=== PATIENT | female | born 1940 | race Caucasian/White ===

== ENCOUNTER 2017-05-05 12:54 | Outpatient (CLI) | payer MEDICARE ==
--- NOTE | 2017-05-05 15:23 | CT ---
CT ANGIO NECK: Date: 05/05/17 Multiple axial tomograms obtained through neck with IV enhancement and arterial phase with multiplana r reconstructions and 3D postprocessing. HISTORY: Abnormal gait. FINDINGS: There is diffuse atherosclerotic disease involving the aortic arch. There is common origin of the inn ominate and left common carotid. No significant stenosis seen at the origin of the arch vessels. Both common carotids are patent with mild diffuse atherosclerotic disease bilaterally. No significant common carotid artery stenosis. On the right, there is calcified plaque at the right bulb and proximal ICA. No significant right ICA stenosis. On the left, there is moderate soft and calcified plaque at the bifurcation in the proximal left ICA. This results in mild stenosis of the proximal left ICA; however, the degree of stenosis is not hemod ynamically significant (greater than 50%) by NASCET criteria. The left ICA is very tortuous and there is a kink in the proximal left ICA above the origin. No other significant disease or stenosis. Vertebrals are patent and are symmetric. No soft tissue mass or adenopathy. There are degenerative changes in the cervical spine, most promine nt at the C6-7 level with loss of disc space and posterior spondylitic changes which appear to encroa ch into the spinal canal and impinge on the cord. IMPRESSION: There is moderate atherosclerotic change at both bulbs and proximal ICAs. Mild stenosis in the proxim al left ICA which does not appear to be hemodynamically significant by NASCET criteria. CT ANGIO HEAD WITH AND WITHOUT CONTRAST: Multiple tomograms obtained through the head without contrast. This was followed by multiple tomogram s through the head with arterial phase enhancement with multiplanar reconstruction and 3D postprocess ing. HISTORY: Abnormal gait. FINDINGS: CT head without contrast reveals no evidence of acute intracranial mass, hemorrhage, or infarct. Ther e are mild chronic ischemic changes. Possible old tiny lacunar infarct in the head of the caudate on the left The intracranial internal carotid arteries are patent. Mild atherosclerotic change seen in the cavern ous portions bilaterally; however, no evidence of significant stenosis. Anterior cerebral arteries and middle cerebral arteries appear patent. No focal stenosis or occlusion seen. Peripheral branches are symmetric. Basilar artery is patent. Posterior cerebrals are patent and symmetric. IMPRESSION: Unremarkable CT angio of cerebral circulation. POS: [facility]
== END 2017-05-05 12:55 | disposition home or self-care (01) ==
LOC: CT 12:54
PROVIDERS: ATTEND Psychiatry & Neurology Neurology
DX: R26.9 Unspecified abnormalities of gait and mobility (principal); I65.22 Occlusion and stenosis of left carotid artery
CPT/HCPCS: 36415; 70496; 70498; 82390; 82525; 82607; 82746; 84165; 84446; 85652; 86038; 86140; 86334

== ENCOUNTER 2017-05-09 09:38 | Outpatient (CLI) | payer MEDICARE ==
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
== END 2017-05-09 09:39 | disposition home or self-care (01) ==
LOC: TBSIIMAG 09:38
PROVIDERS: ATTEND Psychiatry & Neurology Neurology
DX: R26.9 Unspecified abnormalities of gait and mobility (principal); G93.9 Disorder of brain, unspecified
CPT/HCPCS: 70551

== ENCOUNTER 2017-08-18 15:19 | Emergency (ER) | payer MEDICARE ==
[2017-08-18] MEDS ORDERED: Acetaminophen 500 MG TAB ONE (16:48)
== END 2017-08-18 18:00 | disposition home or self-care (01) ==
LOC: ERS 15:19
DX: J02.9 Acute pharyngitis, unspecified (principal); I25.10 Atherosclerotic heart disease of native coronary artery without angina pectoris; I48.91 Unspecified atrial fibrillation; I10 Essential (primary) hypertension; J44.9 Chronic obstructive pulmonary disease, unspecified; F17.210 Nicotine dependence, cigarettes, uncomplicated
CPT/HCPCS: 87081; 87430; 99283

== ENCOUNTER 2017-11-23 17:59 | Emergency (ER) | payer MEDICARE ==
[2017-11-23] MEDS ORDERED: HYDROcodone/Acetaminophen 5/325 mg Tablet ONE ×2 (18:33→19:40)
--- NOTE | 2017-11-23 18:49 | RAD ---
RADIOGRAPH RIGHT SHOULDER 3 VIEWS 11/23/17 HISTORY: 77-year-old female with right shoulder pain. FINDINGS: There is no fracture or dislocation. No high grade DJD of AC joint or glenohumeral joint. Diffuse ost eopenia. No bone destruction identified. Old, healed fracture deformities of the lateral aspects of t hird, fourth, and fifth ribs. IMPRESSION: 1. Osteopenia. 2. Otherwise unremarkable appearance of right shoulder. 3. Old, healed right rib fracture deformities. POS: [facility]
--- NOTE | 2017-11-23 20:30 | CT ---
CT THORAX NONCONTRAST: 11/23/17 HISTORY: 77-year-old female with acute chest pain. COMPARISON: 08/06/16. FINDINGS: On the 08/06/16 CT, there were multiple acute fractures of the right ribs. Those have now healed and ar e now old. The previously demonstrated tiny right pneumothorax has resolved. Previously noted noncalc ified pulmonary nodule in anterior segment of right upper lobe abutting the anterolateral pleural nicolas face is no longer present. There is a tiny 3 mm noncalcified pulmonary nodule at the apical segment o f the left upper lobe, unchanged and benign. Sternotomy wires are again noted. Heavy atherosclerotic calcification of ectatic, and tortuous thoracic aorta again noted. 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 No o bstruction or trachea or major bronchi. Currently no pleural effusion or pneumothorax. 3 cm cyst in l eft kidney again noted. Atherosclerotic calcification of LAD, LCX, left main, and RCA. No cardiomegal y or pericardial effusion. No pulmonary edema. No pulmonary consolidation. IMPRESSION: 1. No acute findings. 2. Multiple, old, traumatic right rib fracture deformities, healed. 3. Atherosclerotic disease involving coronary arteries and thoracic aorta. 4. Small focal aneurysm of aortic arch, unchanged. PARUL [place] POS: [facility]
[2017-11-23 21:01] LABS: #Eosinphils 0.6 thou/uL (0.0-0.7); #Lymphocytes 1.8 thou/uL (1.20-3.40); #Monocytes 0.4 thou/uL (0.11-0.59); #Neutrophils 6.3 thou/uL (1.40-6.50); %Basophils 0.4 % (0.0-1.0); %Eosinophils 6.2 % (0.0-10.0); %Lymphocytes 19.4 % (21.0-51.0); %Monocytes 4.5 % (0.0-10.0); %Neutrophils 69.4 % (42.0-75.0); Hemoglobin 12.1 g/dL (12.0-16.0); Mean Corpuscular Hemoglobin 28.1 pg (27.0-31.0); Mean Corpuscular Volume 85.2 fL (78.0-98.0); Mean Platelet Volume 8.3 fL (7.4-10.4); Platelet Count 226 thou/uL (130-400); RBC Distribution Width 14.3 % (11.5-14.5); Red Blood Cell (RBC) Count 4.31 mill/uL (4.20-5.40)
[2017-11-23 21:15] LABS: Anion Gap 14 mmol/L (10-20); BUN (Urea Nitrogen) 18 mg/dL (9.8-20.1); Calc. Creatinine Clearance 0 mL/min (70-130); Calcium 8.7 mg/dL (7.8-10.44); Carbon Dioxide 23 mmol/L (23-31); Chloride 104 mmol/L (98-107); Estimated GFR-MDRD 48; Glucose 184 mg/dL (83-110); Potassium 4.1 mmol/L (3.5-5.1); Sodium 137 mmol/L (136-145)
== END 2017-11-23 21:35 | disposition home or self-care (01) ==
LOC: ERS 17:59
DX: L04.2 Acute lymphadenitis of upper limb (principal); I48.91 Unspecified atrial fibrillation; I10 Essential (primary) hypertension; J44.9 Chronic obstructive pulmonary disease, unspecified; F17.210 Nicotine dependence, cigarettes, uncomplicated; Z79.899 Other long term (current) drug therapy
CPT/HCPCS: 36415; 71250; 80048; 85025

== ENCOUNTER 2018-02-14 06:40 | Inpatient (IN) | payer MEDICARE ==
[2018-02-14] MEDS ORDERED: Fentanyl 100 MCG/2 ML VIAL ONE (07:33)
[2018-02-14] MEDS ORDERED: Ondansetron ODT 4 MG TAB PO PRN (10:53)
[2018-02-14] MEDS ORDERED: CEFAZOLIN/Water 2 GM/20 ML SYRINGE SLOW IVP SCH (12:00)
--- NOTE | 2018-02-14 12:01 | CT ---
NONCONTRAST HEAD CT: History: Patient is on Eliquis. Fall. Post-traumatic pain. Comparison: 08-06-16 Technique: Noncontrast head CT was performed from skull base to skull vertex. FINDINGS: Slightly limited evaluation due to motion degradation. No parenchymal hemorrhage. No extraaxial hemat josiah. No midline shift. Basilar cisterns are patent. Brain volume is age appropriate. There is malacic change involving the right occipital lobe and left frontal lobe. Otherwise, cortical garcia white faisal er differentiation is preserved. No evidence of hydrocephalus. Calvarium is intact. Adequate aeration of mastoid air cells. Mild mucosal disease of the right ethmoi d air cells. IMPRESSION: 1. No intracranial post-traumatic sequellae. Results of the study discussed with Dr. Nielsen 02-14-18 a t the time of the examination. POS: [facility]
[2018-02-14 12:09] LABS: ALT (SGPT) 11 U/L (8-55); AST (SGOT) 16 U/L (5-34); Albumin 3.9 g/dL (3.4-4.8); Alkaline Phosphatase 117 U/L (40-150); Anion Gap 13 mmol/L (10-20); BUN (Urea Nitrogen) 19 mg/dL (9.8-20.1); Bilirubin, Total 0.3 mg/dL (0.2-1.2); Calc. Creatinine Clearance 0 mL/min (70-130); Calcium 8.8 mg/dL (7.8-10.44); Carbon Dioxide 24 mmol/L (23-31); Chloride 105 mmol/L (98-107); Estimated GFR-MDRD 49; Globulin 2.5 g/dL (2.4-3.5); Glucose 131 mg/dL (83-110); Potassium 4.3 mmol/L (3.5-5.1); Protein, Total 6.4 g/dL (6.0-8.3); Sodium 138 mmol/L (136-145)
[2018-02-14 12:46] LABS: INR-International Normal Ratio 2.3; Prothrombin Time 25.4 SEC (12.0-14.7)
[2018-02-14 12:48] LABS: #Eosinphils 0.2 thou/uL (0.0-0.7); #Lymphocytes 1.6 thou/uL (1.20-3.40); #Monocytes 0.6 thou/uL (0.11-0.59); #Neutrophils 8.7 thou/uL (1.40-6.50); %Basophils 0.4 % (0.0-1.0); %Eosinophils 1.8 % (0.0-10.0); %Lymphocytes 14.1 % (21.0-51.0); %Monocytes 5.4 % (0.0-10.0); %Neutrophils 78.3 % (42.0-75.0); Hemoglobin 11.7 g/dL (12.0-16.0); Mean Corpuscular HGB CONC 32.1 g/dL (32.0-36.0); Mean Corpuscular Hemoglobin 27.9 pg (27.0-31.0); Mean Platelet Volume 9.1 fL (7.4-10.4); Platelet Count 231 thou/uL (130-400); RBC Distribution Width 13.8 % (11.5-14.5); Red Blood Cell (RBC) Count 4.17 mill/uL (4.20-5.40); White Blood Cell (WBC) Count 11.1 thou/uL (4.8-10.8)
--- NOTE | 2018-02-14 12:57 | RAD ---
PORTABLE CHEST: Date: 02-14-18 Provided Clinical History: Pre op. FINDINGS: Comparison with 08-09-16. Cardiac and mediastinal silhouette is unchanged in appearance. Cardiomegaly and vascular calcificatio n are again seen. No focal consolidation, pleural fluid, or pneumothorax apparent. Displaced left pro ximal humeral fracture is noted. IMPRESSION: No evidence for an acute cardiopulmonary process. POS: [facility]
--- NOTE | 2018-02-14 12:57 | RAD ---
TWO VIEWS LEFT SHOULDER: DATE: 02/14/18. PROVIDED CLINICAL HISTORY: Left arm pain. FINDINGS: There is a transversely oriented fracture of the left proximal humeral diaphyseal region with associa ayaka medial and anterior displacement of the distal fracture fragment with fracture fragment overridin g in apex anterior angulation. The glenohumeral relationship is not well assessed on this exam. IMPRESSION: Displaced and angulated left proximal humeral diaphyseal fracture. POS: [facility]
--- NOTE | 2018-02-14 13:03 | CON ---
DATE OF CONSULTATION: 02/14/2018 HISTORY OF PRESENT ILLNESS: We were asked to see the patient for left humerus fracture. She is here with family. Family states she has been having some mentation issues lately, little more confused, hallucinating, and they are concerned with her health. Patient is not a very good historian and family fills in what they are able to. They are waiting for caregiver to arrive to give us further information. The patient fell, she recalls hitting her head, she does not think she had any loss of consciousness. She is answering questions fairly well if they are simple. PAST MEDICAL HISTORY: That I was able to get from patient, some cardiac issues , hypertension, cholesterol, and she is on blood thinners. PAST SURGICAL HISTORY: Some stents, bypass surgery, knee replacement, appendectomy, and hysterectomy. SOCIAL HISTORY: Family states she does not smoke daily, but still has a cigarette now and then. No alcohol products. CURRENT MEDICATIONS: Not verified as of yet are aspirin, carvedilol, docusate sodium, lisinopril, pravastatin, tramadol, and Xarelto, and family is unsure if this is a complete list. ALLERGIES: mayonnaise. REVIEW OF SYSTEMS: Denies any shortness of breath. She does have a little bit of a headache. No chest pain. She has left upper extremity pain, obvious deformity. She has been placed in a sling. Otherwise, she denies rest of review of systems. PHYSICAL EXAMINATION: GENERAL: A lkcn-[id number]-xyxhtdjft female, resting in bed, in mild distress, especially when we moved the left upper extremity. Speech is clear. Answers questions fairly well. She is oriented to person and place. HEENT: Face symmetric, tongue midline. NECK: Supple, trachea midline. EXTREMITIES: Upper extremities, they are equal size, shape, symmetry, normal bulk and tone with the exception of the left humerus proximal area, it is a little bit deformed and tender to palpation. Otherwise, arms have equal pulses and movement to the digits and hands. Lower extremity exam, no positive findings, just some bruises on her shins. ASSESSMENT: 1. Multiple health issues. Trauma is admitting. 2. Left humerus fracture. PLAN: I spoke with the patient and family, we need to get her true medication list. Family is working on this. We would like to do a humeral nailing tomorrow. I explained to the patient and family the procedure. They understand. I also went over the risks and benefits of doing surgery versus not doing the surgery and they understand and they are amenable to go forth with surgery. We will get surgery planned for tomorrow, which we needed to get medical clearance for her. We will keep her in the sling. I will make her n.p.o. after midnight and treat her pain while she is here. She will need PT, OT, or possibly placement skilled rehab. We will see how she does postoperatively. Mor Lugo PA-C., dictating for Sergio Rivera M.D. [facility]
[2018-02-14 14:14] VITALS: BMI 29.9
--- NOTE | 2018-02-14 14:36 | HP-2 ---
DATE OF ADMISSION: 02/14/2018 REQUESTING PHYSICIAN: Dr. Nielsen. ATTENDING SURGEON: Jose Morataya D.O. CONSULTS: Orthopedic Surgery, Dr. Rivera. HISTORY OF PRESENT ILLNESS: This is a 77-year-old female who reports waking up last night to use the restroom. She states normally she turns light on, but did not this time. She rounded corner in her house and fell on her left side. She developed immediate pain in her left arm, had decreased range of motion. Patient reports no loss of consciousness or no trauma to her head. The patient denies no syncopal events surrounding this fall. ALLERGIES: None. CURRENT MEDICATIONS: Per patient, Xarelto, Synthroid, Atarax, and other blood pressure medication fo r her heart. Patient states that family is bringing medication list later today. PAST MEDICAL HISTORY: Coronary artery disease, status post quadruple bypass 3-4 years ago, hypothyro idism, atrial fibrillation. PAST SURGICAL HISTORY: Bypass mentioned above, 6 prior sections. SOCIAL HISTORY: The patient states that she smokes half a pack a day for about 50 years and continue s to smoke. FAMILY HISTORY: Diabetes type 2 in her other siblings. REVIEW OF SYSTEMS: Ten point review of systems is negative, unless otherwise stated. PHYSICAL EXAMINATION: VITAL SIGNS: . GENERAL: Patient is resting comfortably in bed with eyes closed. Upon entering the room, the patien t awake, alert, and oriented x3 and discuss appropriate with us. HEENT: Atraumatic, normocephalic. EOMI, PERRLA bilaterally. Oropharynx is clear. NECK: Nontender, no JVD. CHEST: Heart is irregularly irregular. Patient has 2/6 systolic murmur, best heard at the left ster nal border. LUNGS: Clear to auscultation bilaterally. ABDOMEN: Soft, nontender with positive bowel sounds. EXTREMITIES: Neurovascularly intact x4. Left upper extremity is currently in a sling. LABORATORY RESULTS: White blood cell count 11.1, hemoglobin 11.7, hematocrit 36.3, platelets 231. P T is 25.4, INR 2.30. RADIOGRAPHS: Proximal left shoulder x-ray, proximal fourth of left humerus is laterally displaced. There are signs of sternal wire and suggestive of heart surgery in the past. ASSESSMENT: 1. Status post ground level fall. 2. Left humeral shaft fracture, displaced. 3. Pain secondary to acute trauma. 4. History of atrial fibrillation. 5. History of hypothyroidism. 6. History of hypertension. PLAN: Patient will be admitted to surgical floor. Patient will be on regular diet today and n.p.o. after midnight. We will control pain management as well as gastric and mechanical venous thromboembo lic prophylaxis. Miguel has been notified of this case. Dr. Morataya saw this patient. We discussed their treatment and plan.
[2018-02-14] MEDS: Acetaminophen 325 MG TAB PO SCH ×4 (15:24→23:46)
[2018-02-14] MEDS: Famotidine 20 MG TAB PO SCH (19:56)
[2018-02-14] MEDS ORDERED: Phytonadione 10 MG/ML AMP SLOW IVP SCH (20:45)
[2018-02-14] MEDS: Sodium Chloride 0.45% 1,000 ML IV SCH (23:49)
[2018-02-15] MEDS: Acetaminophen 325 MG TAB PO SCH ×6 (02:49→22:06)
[2018-02-15 04:37] LABS: #Basophils 0.1 thou/uL (0.0-0.2); #Eosinphils 0.5 thou/uL (0.0-0.7); #Lymphocytes 3.1 thou/uL (1.20-3.40); #Monocytes 0.5 thou/uL (0.11-0.59); #Neutrophils 2.6 thou/uL (1.40-6.50); %Basophils 0.8 % (0.0-1.0); %Eosinophils 7.4 % (0.0-10.0); %Monocytes 7.6 % (0.0-10.0); %Neutrophils 38.2 % (42.0-75.0); Hemoglobin 11.3 g/dL (12.0-16.0); Mean Corpuscular HGB CONC 32.9 g/dL (32.0-36.0); Mean Corpuscular Hemoglobin 28.8 pg (27.0-31.0); Mean Corpuscular Volume 87.6 fL (78.0-98.0); Mean Platelet Volume 9.5 fL (7.4-10.4); Platelet Count 199 thou/uL (130-400); RBC Distribution Width 13.9 % (11.5-14.5); Red Blood Cell (RBC) Count 3.93 mill/uL (4.20-5.40); White Blood Cell (WBC) Count 6.8 thou/uL (4.8-10.8)
[2018-02-15 04:44] LABS: INR-International Normal Ratio 1.4; Prothrombin Time 16.9 SEC (12.0-14.7)
[2018-02-15 05:00] LABS: ALT (SGPT) 8 U/L (8-55); AST (SGOT) 12 U/L (5-34); Albumin 3.4 g/dL (3.4-4.8); Alkaline Phosphatase 96 U/L (40-150); Anion Gap 13 mmol/L (10-20); BUN (Urea Nitrogen) 15 mg/dL (9.8-20.1); Bilirubin, Total 0.5 mg/dL (0.2-1.2); Calc. Creatinine Clearance 57 mL/min (70-130); Calcium 8.4 mg/dL (7.8-10.44); Carbon Dioxide 22 mmol/L (23-31); Chloride 106 mmol/L (98-107); Estimated GFR-MDRD 61; Globulin 2.4 g/dL (2.4-3.5); Glucose 107 mg/dL (83-110); Protein, Total 5.8 g/dL (6.0-8.3); Sodium 137 mmol/L (136-145)
[2018-02-15] MEDS: Famotidine 20 MG TAB PO SCH ×2 (07:42→21:15)
--- NOTE | 2018-02-15 12:24 | PRG ---
DATE OF SERVICE: 02/15/2018 SUBJECTIVE: Ms. Delgado is a 77-year-old woman who fell from a ground level position yesterday suffer ing comminuted displaced left proximal humerus fracture. The patient has been on Xarelto for chronic atrial fibrillation. It also was held yesterday. INR wa s elevated yesterday at 2.3 for which patient was given vitamin K 5 mg. This morning, she reports adequate pain control. She has been on bowel rest since midnight in anticipation for surgery. OBJECTIVE: VITAL SIGNS: This morning includes blood pressure 131/44, pulse is 81 and irregular, respiratory rat e is 18, temperature 97.7 degrees Fahrenheit and oxygen saturation 98%. HEENT: Examination reveals normocephalic and atraumatic. Pupils are equal, round, and reactive to l ight and accommodation. HEART: Reveals irregular rate and irregular rhythm. LUNGS: Clear to auscultation bilaterally. Breathing is regular and unlabored. ABDOMEN: Soft, nontender, nondistended. Liver and spleen are nonpalpable below costal margin. EXTREMITIES: Reveals 2+ radial and pedal pulses bilaterally. She has no ankle edema present. The l eft upper extremity is immobilized in a sling. NEUROLOGIC: Examination reveals no focal deficits present. LABORATORY DATA: Today includes CBC with 6,800 white blood cells, hemoglobin and hematocrit 11.3 and 34.4 respectively, platelet count is 199,000. Metabolic profile: Sodium 137, potassium is 4.0, chl oride is 106, bicarbonate is 22, BUN 15, creatinine 0.90, glucose was 107, total bilirubin 0.5, AST a nd ALT normal at 12 and 8 respectively. IMPRESSION: 1. Post-injury day #1, status post ground level fall. 2. Closed complete displaced proximal left humerus fracture. 3. Chronic atrial fibrillation, currently with bradyarrhythmia. The patient is without any symptoms . INR this morning is normalized at 1.4. 4. Post-injury day #1, status post ground level fall. 5. Proximal left humerus fracture. 6. History of chronic atrial fibrillation. PLAN: The patient is hemodynamically stable to proceed with repair of the left humerus fracture. We will obtain a transthoracic echocardiography perioperatively.
[2018-02-15] MEDS ORDERED: CEFAZOLIN/Water 2 GM/20 ML SYRINGE ONE (13:12)
[2018-02-15] MEDS ORDERED: Morphine 4 MG/ML VIAL ONE (13:28)
[2018-02-15] MEDS ORDERED: Fentanyl 100 MCG/2 ML VIAL ONE ×3 (13:31→15:37)
[2018-02-15] MEDS ORDERED: Bupivacaine HCl 0.5%/Epinephrine 1:200,000/PF 30 ml Vial ONE (14:04)
--- NOTE | 2018-02-15 15:14 | RAD ---
LEFT HUMERUS TWO VIEWS INTRAOPERATIVE FLUOROSCOPY: History: Fracture. FINDINGS/IMPRESSION: Intraoperative fluoroscopy was provided for internal fixation. Spot fluoroscopic images show a short medullary alejandro transfixing the proximal humeral fracture, in anatomic alignment. Fluoro time: 32.4 seconds. POS: [facility]
--- NOTE | 2018-02-15 18:30 | OP ---
DATE OF PROCEDURE: 02/15/2018 OPERATION: Intramedullary nail fixation of left proximal humerus fracture. PREOPERATIVE DIAGNOSIS: Left displaced proximal humerus fracture. POSTOPERATIVE DIAGNOSIS: Left displaced proximal humerus fracture. COMPLICATIONS: None. ESTIMATED BLOOD LOSS: 150 mL SURGEON: Sergio Rivera M.D. SIZER HAND: Mert Dempsey PA-C. IMPLANTS: Synthes 7 mm short humeral nail with screw fixation. INDICATIONS: Ms. Delgado is a 77-year-old female who fell. She fractured her left humerus. She was indicated for intramedullary nail fixation to restore anatomic alignment and promote healing. Risks have been reviewed in detail. She elected to proceed with the operation. DESCRIPTION OF PROCEDURE: Ms. Delgado was identified in the preoperative holding area. Her correct e xtremity was marked. She was carried to the operating room. She was positioned supine. General ane sthesia was induced. A multidisciplinary timeout was performed. The left upper extremity was preppe d and draped in sterile fashion. We began the procedure with a lateral approach over the deltoid. We dissected down to the subcutaneo us tissues. The deltoid fascia was split. This brought us down onto the proximal humerus. We clear ed the subacromial space. We then made a small split in the rotator cuff and came down on the tubero sity. We obtained an appropriate start point for our guidewire. At this point, we inserted our guid ewire appropriately using intraoperative x-ray. We then overdrilled the guidewire. Finally, at this point, we were able to pass our intramedullary nail device. We passed this across the fracture site into the shaft. We reduced the fracture well and obtained compression. We then placed a distal crop or livestock tenant farmer ss lock screw followed by proximal cross lock screws. We took final images. We then irrigated and c losed in layers. A dressing was placed. The patient was taken to the recovery room in good conditio n.
[2018-02-15] MEDS ORDERED: traMADol HCl 50 MG TAB PO PRN (20:23)
[2018-02-15] MEDS: Ibuprofen 200 MG TAB PO SCH (21:15)
[2018-02-15] MEDS: CEFAZOLIN/Water 2 GM/20 ML SYRINGE SLOW IVP SCH (21:16)
[2018-02-15] MEDS: Senokot S 8.6-50 MG TAB PO SCH (21:16)
[2018-02-15] MEDS: Sodium Chloride 0.45% 1,000 ML IV SCH (22:27)
[2018-02-16] MEDS: traMADol HCl 50 MG TAB PO SCH ×5 (00:49→23:12)
[2018-02-16] MEDS: Acetaminophen 325 MG TAB PO SCH ×6 (00:50→20:35)
[2018-02-16] MEDS: CEFAZOLIN/Water 2 GM/20 ML SYRINGE SLOW IVP SCH (05:27)
[2018-02-16] MEDS: Ibuprofen 200 MG TAB PO SCH ×3 (05:28→23:12)
[2018-02-16 05:42] LABS: #Eosinphils 0.5 thou/uL (0.0-0.7); #Lymphocytes 2.3 thou/uL (1.20-3.40); #Monocytes 0.6 thou/uL (0.11-0.59); #Neutrophils 3.5 thou/uL (1.40-6.50); %Basophils 0.3 % (0.0-1.0); %Eosinophils 6.9 % (0.0-10.0); %Lymphocytes 33.7 % (21.0-51.0); %Monocytes 8.7 % (0.0-10.0); %Neutrophils 50.4 % (42.0-75.0); Hemoglobin 10.6 g/dL (12.0-16.0); Mean Corpuscular HGB CONC 31.7 g/dL (32.0-36.0); Mean Corpuscular Hemoglobin 28.4 pg (27.0-31.0); Mean Corpuscular Volume 89.7 fL (78.0-98.0); Mean Platelet Volume 9.8 fL (7.4-10.4); Platelet Count 184 thou/uL (130-400); RBC Distribution Width 13.8 % (11.5-14.5); Red Blood Cell (RBC) Count 3.74 mill/uL (4.20-5.40); White Blood Cell (WBC) Count 6.9 thou/uL (4.8-10.8)
[2018-02-16 06:22] LABS: ALT (SGPT) Less than 7 U/L (8-55); AST (SGOT) 15 U/L (5-34); Alkaline Phosphatase 92 U/L (40-150); Anion Gap 13 mmol/L (10-20); BUN (Urea Nitrogen) 13 mg/dL (9.8-20.1); Bilirubin, Total 0.3 mg/dL (0.2-1.2); Calc. Creatinine Clearance 54 mL/min (70-130); Calcium 8.2 mg/dL (7.8-10.44); Carbon Dioxide 20 mmol/L (23-31); Chloride 106 mmol/L (98-107); Estimated GFR-MDRD 58; Globulin 2.4 g/dL (2.4-3.5); Glucose 95 mg/dL (83-110); Potassium 4.1 mmol/L (3.5-5.1); Protein, Total 5.4 g/dL (6.0-8.3); Sodium 135 mmol/L (136-145)
[2018-02-16] MEDS ORDERED: Enoxaparin Sodium 40 MG/0.4 ML SYRINGE SC SCH (09:00)
[2018-02-16] MEDS: Famotidine 20 MG TAB PO SCH ×2 (10:01→20:36)
[2018-02-16] MEDS: Senokot S 8.6-50 MG TAB PO SCH ×2 (10:01→20:41)
[2018-02-16] MEDS: Polyethylene Glycol 3350 17 GM Packet PO SCH (10:01)
--- NOTE | 2018-02-16 13:52 | PRG-2 ---
DATE OF SERVICE: 02/15/2018 SUBJECTIVE: This is a 77-year-old female hospital day #2, postop day #1, ORIF of left humeral shaft fracture. The patient stated that her pain is well controlled. She is having no trouble breathing, no chest pain. Her only complaint this morning was that she was positioned strangely. The patient w as slumped over trying to eat. We repositioned her and she stated that was improvement. OBJECTIVE: VITAL SIGNS: Temperature 98.7, pulse 61, respirations 16, O2 sat 94% on 2 liters nasal cannula, bloo d pressure 147/65. GENERAL: The patient is sitting in bed in no acute distress, eating breakfast. CARDIOVASCULAR: Reveals irregular rate, irregular rhythm. LUNGS: Clear to auscultation bilaterally. Patient is not labored in breathing. EXTREMITIES: 2+ pulses in all 4 extremities. Good sensation in all 4 extremities. LABORATORY DATA: White blood cells 6.9, hemoglobin 10.6, hematocrit 33.5, MCV 89.7, platelet count 1 84. Sodium 135, potassium 4.1, chloride 100.6, bicarb 20, BUN 13, creatinine 0.94, glucose 95. IMAGING: None to review today. ASSESSMENT: 1. Left humeral shaft fracture postoperative day 1, status post open reduction and internal fixation . 2. Chronic atrial fibrillation with resolved bradycardia. 3. History of atrial fibrillation. PLAN: We will continue to control the patient's pain as well as restart her Xarelto. We will wait t o see how the patient does with physical therapy and occupational therapy. The patient reports that her rjttbaze-go-asv could come stay with her and help her with ADLs if necessary. The patient states she would like home health over inpatient rehab or other options. Dr. Morataya saw this patient. We discussed the treatment plan.
[2018-02-17] MEDS: Acetaminophen 325 MG TAB PO SCH ×5 (03:57→17:07)
[2018-02-17] MEDS: Ibuprofen 200 MG TAB PO SCH ×2 (05:14→14:27)
[2018-02-17] MEDS: traMADol HCl 50 MG TAB PO SCH ×4 (05:15→17:08)
[2018-02-17 05:50] LABS: #Basophils 0.1 thou/uL (0.0-0.2); #Eosinphils 0.7 thou/uL (0.0-0.7); #Monocytes 0.5 thou/uL (0.11-0.59); #Neutrophils 3.4 thou/uL (1.40-6.50); %Basophils 0.8 % (0.0-1.0); %Lymphocytes 30.2 % (21.0-51.0); %Monocytes 7.9 % (0.0-10.0); %Neutrophils 51.1 % (42.0-75.0); Hemoglobin 10.6 g/dL (12.0-16.0); Mean Corpuscular HGB CONC 32.6 g/dL (32.0-36.0); Mean Corpuscular Hemoglobin 28.7 pg (27.0-31.0); Mean Platelet Volume 9.4 fL (7.4-10.4); Platelet Count 219 thou/uL (130-400); RBC Distribution Width 13.7 % (11.5-14.5); White Blood Cell (WBC) Count 6.7 thou/uL (4.8-10.8)
[2018-02-17 06:00] LABS: ALT (SGPT) Less than 7 U/L (8-55); AST (SGOT) 12 U/L (5-34); Albumin 3.1 g/dL (3.4-4.8); Alkaline Phosphatase 93 U/L (40-150); Anion Gap 11 mmol/L (10-20); BUN (Urea Nitrogen) 17 mg/dL (9.8-20.1); Bilirubin, Total 0.3 mg/dL (0.2-1.2); Calc. Creatinine Clearance 49 mL/min (70-130); Calcium 8.3 mg/dL (7.8-10.44); Carbon Dioxide 25 mmol/L (23-31); Chloride 106 mmol/L (98-107); Estimated GFR-MDRD 52; Globulin 2.5 g/dL (2.4-3.5); Glucose 97 mg/dL (83-110); Potassium 3.9 mmol/L (3.5-5.1); Protein, Total 5.6 g/dL (6.0-8.3); Sodium 138 mmol/L (136-145)
[2018-02-17] MEDS ORDERED: Bisacodyl 10 MG SUPP PR SCH (08:15)
[2018-02-17] MEDS: Polyethylene Glycol 3350 17 GM Packet PO SCH (08:38)
[2018-02-17] MEDS: Senokot S 8.6-50 MG TAB PO SCH (08:39)
[2018-02-17] MEDS: Famotidine 20 MG TAB PO SCH (08:39)
[2018-02-17 11:28] VITALS: TEMP 97.9
[2018-02-17 16:20] VITALS: BP 174/77
[2018-02-17] MEDS ORDERED: Rivaroxaban 10 MG TAB PO SCH (17:00)
--- NOTE | 2018-02-18 02:41 | DIS ---
DATE OF ADMISSION: 02/14/2018 DATE OF DISCHARGE: 02/17/2018 ADMITTING PHYSICIAN: Jose Morataya D.O. CONSULTANTS: Dr. Rivera with Orthopedic Surgery. DISCHARGING PHYSICIAN: Jose Morataya D.O. ADMITTING DIAGNOSES: 1. Rate controlled atrial fibrillation. 2. Left humeral shaft fracture. 3. History of hypertension. 4. Hypothyroidism. HOSPITAL COURSE: The patient was admitted to the Trauma Service after a ground level fall resulting in the fracture. Orthopedics was consulted and the patient was taken to the OR for ORIF on 8. The patient was transferred back to the telemetry. Her Xarelto was held. Echocardiogram was obt ained showing ejection fraction of 55%-60%, diastolic dysfunction, aortic and tricuspid regurg is not ed. The patient remained stable throughout her hospital course. Pain control with oral medications obtained. Initially, the patient wanted to be discharged home with home health and family care; aga andino, it was decided that rehab to be the better appropriate option, now therefore, rehab consult was obtained and approved. The patient remained hemodynamically stable. She did have a small bowel move ment on the date of discharge, she was hemodynamically stable, tolerating a diet and having normal ur ination. The patient had no distress other than the arm and was placed in a sling, she was cleared b y Orthopedic Surgery. PHYSICAL EXAMINATION: VITAL SIGNS: On the day of discharge vital signs remained stable. GENERAL: This is a 77-year-old female sitting up in bed in no acute distress. HEENT: Normocephalic, atraumatic. Trachea is midline. NECK: No JVD is appreciated. RESPIRATORY: Equal rise and fall. No respiratory distress. CARDIOVASCULAR: Irregularly irregular rhythm with a normal rate. No barbara edema is appreciated. ABDOMEN: Soft and nontender. MUSCULOSKELETAL: She has a left humeral fracture that has a dressing and sling in place. She has go t strong peripheral pulses distally to this and positive CMS. NEUROLOGIC: Alert and oriented to person, place, time, and event. SKIN: [place], warm and dry. MEDICATIONS: She will continue her home medications. We will transition her back to her home Xarelt o for DVT prophylaxis, pain control and continue her Synthroid as well as her antihypertensive. DISCHARGE INSTRUCTIONS: The patient will be transferred by EMS to rehab facility where she is accept able. Continue the same medications and further rehabilitation. The patient will follow up with Dr. Rivera in clinic in 7-10 days. This consult was placed in the chart and directions. The patient is being discharged to rehabilitation. I have answered all questions of the patient, patient at the bedside and coordinate care with the annie e management to the Trauma Team, orthopedic team. Greater than 30 minutes was taken in preparation of this patient's discharge.
[2018-02-18] MEDS ORDERED: Famotidine 20 MG TAB PO SCH (09:00)
== END 2018-02-17 17:46 | DRG 494 ==
LOC: ERS 06:40 → ERHOLD 10:55 → T4-A 13:29 → 2NO 02-15 16:19
PROVIDERS: ADMIT Surgery; ATTEND Surgery
PROC: 0PSG06Z Reposition Left Humeral Shaft with Intramedullary Internal Fixation Device, Open Approach (ICD-10-PCS; principal; 2018-02-15)
DX: S42.202A Unspecified fracture of upper end of left humerus, initial encounter for closed fracture (principal); Z79.01 Long term (current) use of anticoagulants; I25.10 Atherosclerotic heart disease of native coronary artery without angina pectoris; E03.9 Hypothyroidism, unspecified; Z95.1 Presence of aortocoronary bypass graft; F17.210 Nicotine dependence, cigarettes, uncomplicated; I10 Essential (primary) hypertension; I48.2 Chronic atrial fibrillation; W18.30XA Fall on same level, unspecified, initial encounter
CPT/HCPCS: 36415; 70450; 71045; 76001; 80053; 85025; 85610; 86850; 86900; 86901; 93005; 93306; A4216; C1713; C1769; G0390; G8978-GP-CM; G8979-GP-CK; G8987-GO-CJ; G8987-GO-CK; G8988-GO-CI; G8988-GO-CJ; J0670; J1650; J2270; J3010; J3430

== ENCOUNTER 2018-05-03 14:22 | Outpatient (CLI) | payer MEDICARE ==
--- NOTE | 2018-05-03 15:08 | RAD ---
LEFT HUMERUS TWO VIEWS: History: 78-year-old female with history of follow up fracture of humeral shaft. FINDINGS: Intermedullary alejandro stabilizes the proximal humeral shaft. There is evidence for a healing fracture th rough the humeral metadiaphysis with some bony callus. IMPRESSION: Healing fracture proximal humeral metadiaphysis with some bony callus stabilized with intermedullary alejandro. Bony demineralization. Healing is incomplete. POS: [facility]
== END 2018-05-03 14:23 | disposition home or self-care (01) ==
LOC: BICRAD 14:22
PROVIDERS: ATTEND Specialist
DX: S42.302D Unspecified fracture of shaft of humerus, left arm, subsequent encounter for fracture with routine healing (principal); S42.202D Unspecified fracture of upper end of left humerus, subsequent encounter for fracture with routine healing

== ENCOUNTER 2019-03-28 12:32 | Outpatient (CLI) | payer MEDICARE ==
--- NOTE | 2019-03-28 14:56 | RAD ---
RADIOGRAPH CHEST 2 VIEWS: 03/28/2019 HISTORY: An 79-year-old female with COPD. FINDINGS: There is no air space density, pulmonary edema, pleural effusion, pneumothorax, or cardiomegaly. Ther e are sternotomy wires. There is an intramedullary nail in the proximal left humerus from the humeral head to the mid shaft. IMPRESSION: 1. No acute cardiopulmonary findings. 2. Status post open heart surgery. deepika [] POS: [facility]
--- NOTE | 2019-03-28 14:58 | RAD ---
CERVICAL SPINE SEVEN VIEWS: INDICATIONS: Cervicalgia. FINDINGS: Degenerative changes are noted. There is loss of disk space at C6-C7. There is mild anterolisthesis a t C3-C4 measured at 2 to 3 mm. This appears to reduce with extension. No significant exacerbation wit h flexion. Facet hypertrophy. Mild degenerative spurring. IMPRESSION: Degenerative changes of the cervical spine as described. POS: [facility]
== END 2019-03-28 12:33 | disposition home or self-care (01) ==
LOC: BICRAD 12:32
PROVIDERS: ATTEND Specialist
DX: M54.2 Cervicalgia (principal); J44.9 Chronic obstructive pulmonary disease, unspecified; M47.812 Spondylosis without myelopathy or radiculopathy, cervical region; Z98.890 Other specified postprocedural states
CPT/HCPCS: 71046; 72052

== ENCOUNTER 2019-04-20 14:16 | Outpatient (CLI) | payer MEDICARE ==
--- NOTE | 2019-04-20 15:41 | BD ---
DEXA BONE DENSITY STUDY: Date: 04/20/19 HISTORY: Postmenopausal. 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 POS: [facility]
--- NOTE | 2019-04-24 16:40 | MMO ---
Bilateral MAMMO Bilat Screen [facility]. CLINICAL HISTORY: Patient is 79 years old and is seen for screening. The patient has no family history of breast cancer. The patient has no personal history of cancer. VIEWS: The views performed were: bilateral craniocaudal with tomosynthesis and bilateral mediolateral oblique with tomosynthesis. FILMS COMPARED: The present examination has been compared to a prior imaging study performed at [facility] on 09/15/2011. This study has been interpreted with the assistance of computer-aided detection. MAMMOGRAM FINDINGS: There are scattered fibroglandular densities. Benign calcifications are noted bilaterally. There are no suspicious masses, suspicious calcifications, or new areas of architectural distortion. IMPRESSION: THERE IS NO MAMMOGRAPHIC EVIDENCE OF MALIGNANCY. A ROUTINE FOLLOW-UP MAMMOGRAM IN 1 YEAR IS RECOMMENDED. THE RESULTS OF THIS EXAM WERE SENT TO THE PATIENT. ACR BI-RADS Category 2 - Benign finding MAMMOGRAPHY NOTE: 1. A negative mammogram report should not delay a biopsy if a dominant of clinically suspicious mass is present. 2. Approximately 10% to 15% of breast cancers are not detected by mammography. 3. Adenosis and dense breasts may obscure an underlying neoplasm. Reported by: LANA ZIMMERMAN MD Electonically Signed: [id number]
== END 2019-04-20 14:17 | disposition home or self-care (01) ==
LOC: BICMAMMO 14:16
PROVIDERS: ATTEND Specialist
DX: Z12.31 Encounter for screening mammogram for malignant neoplasm of breast (principal)
CPT/HCPCS: 77063; 77067; 77080

== ENCOUNTER 2019-05-13 07:02 | Emergency (ER) | payer MEDICARE ==
[2019-05-13] MEDS ORDERED: Morphine 4 MG/ML VIAL ONE (07:20)
[2019-05-13] MEDS ORDERED: Ondansetron PF 4 MG/2 ML Vial ONE (07:21)
[2019-05-13 07:30] LABS: #Eosinphils 0.7 thou/uL (0.0-0.7); #Lymphocytes 2.6 thou/uL (1.20-3.40); #Monocytes 0.6 thou/uL (0.11-0.59); #Neutrophils 3.3 thou/uL (1.40-6.50); %Basophils 0.7 % (0.0-1.0); %Eosinophils 9.6 % (0.0-10.0); %Lymphocytes 35.9 % (21.0-51.0); %Monocytes 8.1 % (0.0-10.0); %Neutrophils 45.7 % (42.0-75.0); Hemoglobin 12.4 g/dL (12.0-16.0); Mean Corpuscular HGB CONC 32.6 g/dL (32.0-36.0); Mean Corpuscular Hemoglobin 27.9 pg (27.0-31.0); Mean Corpuscular Volume 85.7 fL (78.0-98.0); Mean Platelet Volume 9.3 fL (7.4-10.4); Platelet Count 207 thou/uL (130-400); RBC Distribution Width 14.3 % (11.5-14.5); Red Blood Cell (RBC) Count 4.46 mill/uL (4.20-5.40); White Blood Cell (WBC) Count 7.2 thou/uL (4.8-10.8)
[2019-05-13 07:41] LABS: ALT (SGPT) 10 U/L (8-55); AST (SGOT) 16 U/L (5-34); Albumin 3.7 g/dL (3.4-4.8); Alkaline Phosphatase 148 U/L (40-110); Anion Gap 10 mmol/L (10-20); BUN (Urea Nitrogen) 18 mg/dL (9.8-20.1); Bilirubin, Total 0.4 mg/dL (0.2-1.2); CK (CPK) 53 U/L (29-168); Calc. Creatinine Clearance 0 mL/min (70-130); Calcium 8.7 mg/dL (7.8-10.44); Carbon Dioxide 28 mmol/L (23-31); Chloride 104 mmol/L (98-107); Estimated GFR-MDRD 48; Globulin 2.6 g/dL (2.4-3.5); Glucose 128 mg/dL (83-110); Lipase 32 U/L (8-78); Potassium 4.2 mmol/L (3.5-5.1); Protein, Total 6.3 g/dL (6.0-8.3); Sodium 138 mmol/L (136-145)
--- NOTE | 2019-05-13 07:41 | RAD ---
EXAM: Single view of the chest HISTORY: Right upper quadrant abdominal pain COMPARISON: 12/27/2017 FINDINGS: Single view of the chest shows a normal sized cardiomediastinal silhouette. The patient is status post sternotomy. Atherosclerotic calcifications are seen in the aorta. There is no evidence of consolidation, mass, or pleural effusion. The bones are unremarkable. IMPRESSION: No evidence of acute cardiopulmonary disease
--- NOTE | 2019-05-13 08:18 | CT ---
CT Abdomen Pelvis W Con: 05/13/2019 7:15 AM CLINICAL INFORMATION: Right upper quadrant abdominal pain COMPARISON: 12/03/2013 TECHNIQUE: Multiple contiguous axial images were obtained and a CT of the abdomen and pelvis with IV contrast. C oronal and sagittal reformats were performed. FINDINGS: Lower Chest: within normal limits. Abdomen: Liver: within normal limits. Bile Ducts: Normal caliber. Gallbladder: No calcified gallstones. Normal caliber wall. Pancreas: within normal limits. Spleen: within normal limits. Adrenals: within normal limits. Kidneys: 3.2 cm left renal cyst. Pelvis: Reproductive Organs: Status post hysterectomy. Ureters: within normal limits. Bladder: within normal limits. Peritoneum: No ascites or free air, no fluid collection. Bowel: Normal caliber. Scattered diverticula in the colon. Mesentery and Retroperitoneum: No enlarged mesenteric or retroperitoneal lymph nodes. Vessels: The abdominal aorta is enlarged measuring 4.0 cm in greatest dimension. This has enlarged co mpared to the prior examination. Mural thrombus is seen within the aorta. A small amount of soft tissue density surrounds the aorta. The soft tissue density is new compared to the prior examination. Abdominal Wall: within normal limits. Bones: Degenerative changes in the spine. IMPRESSION: 1. No evidence of acute intraabdominal or pelvic abnormality. 2. Abdominal aortic aneurysm 3. Diverticulosis
[2019-05-13] MEDS ORDERED: Iopamidol-370 76% 500 ML 1 ML ONE ×2 (12:27→12:28)
== END 2019-05-13 09:04 | disposition home or self-care (01) ==
LOC: ERS 07:02
DX: R10.11 Right upper quadrant pain (principal); I10 Essential (primary) hypertension; E03.9 Hypothyroidism, unspecified; E78.00 Pure hypercholesterolemia, unspecified; Z79.899 Other long term (current) drug therapy; Z79.891 Long term (current) use of opiate analgesic
CPT/HCPCS: 36415; 71045; 74177; 80053; 82550; 83605; 83690; 83880; 84484; 85025; 93005; 96361; 96374; 96375; J2270; J2405; Q9967

== ENCOUNTER 2020-03-24 10:49 | Outpatient (CLI) | payer MEDICARE ==
--- NOTE | 2020-03-24 11:07 | RAD ---
EXAM: Chest 2 views: HISTORY: Cough COMPARISON: 03/28/2019 FINDINGS: There is a normal-sized cardiomediastinal silhouette. Atherosclerotic calcifications are seen in the aorta. The patient is status post sternotomy. There is no evidence of consolidation, mass, or pleural effusion. No acute osseous abnormality. IMPRESSION: No evidence of acute cardiopulmonary disease
== END 2020-03-24 10:50 | disposition home or self-care (01) ==
LOC: BICRAD 10:49
PROVIDERS: ATTEND Nurse Practitioner Family
DX: J44.1 Chronic obstructive pulmonary disease with (acute) exacerbation (principal); R05 Cough
CPT/HCPCS: 71046

== ENCOUNTER 2021-03-16 10:49 | Outpatient (CLI) | payer MEDICARE | END 2021-03-16 10:50 | disposition home or self-care (01) | LOC: BICRAD 10:49 | PROVIDERS: ATTEND Specialist | DX: M79.602 Pain in left arm (principal); M79.651 Pain in right thigh; R22.42 Localized swelling, mass and lump, left lower limb | CPT/HCPCS: 76999 ==

== ENCOUNTER 2021-09-30 11:02 | Inpatient (IN) | payer OTHER, MEDICARE ==
[2021-09-30 11:53] LABS: #Basophils 0.1 thou/uL (0.0-0.2); #Eosinphils 0.6 thou/uL (0.0-0.7); #Lymphocytes 1.7 thou/uL (1.20-3.40); #Monocytes 0.6 thou/uL (0.11-0.59); #Neutrophils 7.8 thou/uL (1.40-6.50); %Basophils 0.7 % (0.0-1.0); %Eosinophils 5.2 % (0.0-10.0); %Lymphocytes 16.3 % (21.0-51.0); %Monocytes 5.1 % (0.0-10.0); %Neutrophils 72.7 % (42.0-75.0); Hemoglobin 14.4 g/dL (12.0-16.0); Mean Corpuscular HGB CONC 32.4 g/dL (32.0-36.0); Mean Corpuscular Hemoglobin 30.2 pg (27.0-31.0); Mean Corpuscular Volume 93.4 fL (78.0-98.0); Mean Platelet Volume 9.6 fL (7.4-10.4); Platelet Count 228 thou/uL (130-400); RBC Distribution Width 12.1 % (11.5-14.5); Red Blood Cell (RBC) Count 4.77 mill/uL (4.20-5.40); White Blood Cell (WBC) Count 10.7 thou/uL (4.8-10.8)
[2021-09-30] MEDS ORDERED: Fentanyl 100 MCG/2 ML VIAL ONE (11:53)
[2021-09-30] MEDS ORDERED: Acetaminophen 500 MG TAB ONE (11:53)
[2021-09-30 12:07] LABS: INR-International Normal Ratio 2.3; Prothrombin Time 25.8 sec (12.0-14.7)
[2021-09-30 12:08] LABS: PTT 52.5 sec (22.9-36.1)
[2021-09-30 12:25] LABS: ALT (SGPT) 7 U/L (8-55); AST (SGOT) 14 U/L (5-34); Albumin 4.2 g/dL (3.4-4.8); Alkaline Phosphatase 116 U/L (40-110); Anion Gap 12 mmol/L (10-20); BUN (Urea Nitrogen) 25 mg/dL (9.8-20.1); Bilirubin, Total 0.6 mg/dL (0.2-1.2); Calc. Creatinine Clearance 0 mL/min (70-130); Calcium 9.4 mg/dL (7.8-10.44); Carbon Dioxide 28 mmol/L (23-31); Chloride 103 mmol/L (98-107); Globulin 3.2 g/dL (2.4-3.5); Glucose 107 mg/dL (83-110); Magnesium 2.2 mg/dL (1.6-2.6); Potassium 4.3 mmol/L (3.5-5.1); Protein, Total 7.4 g/dL (5.8-8.1); Sodium 139 mmol/L (136-145)
[2021-09-30] MEDS ORDERED: Ondansetron PF 4 MG/2 ML Vial IVP PRN (18:10)
[2021-09-30 18:47] VITALS: BMI 33.3
[2021-09-30] MEDS: HYDROcodone/Acetaminophen 5/325 mg Tablet PO PRN (21:50)
[2021-09-30] MEDS: Zolpidem Tartrate 5 MG TAB PO SCH (21:53)
[2021-09-30] MEDS: Atorvastatin Calcium 20 MG TAB PO SCH (21:53)
[2021-09-30] MEDS: Propafenone HCl 150 MG TAB PO SCH (23:08)
[2021-10-01] MEDS: HYDROcodone/Acetaminophen 5/325 mg Tablet PO PRN ×2 (05:07→10:27)
[2021-10-01] MEDS: Levothyroxine Sodium 125 MCG TAB PO SCH (05:08)
[2021-10-01 05:23] LABS: #Basophils 0.1 thou/uL (0.0-0.2); #Eosinphils 0.6 thou/uL (0.0-0.7); #Lymphocytes 2.4 thou/uL (1.20-3.40); #Monocytes 0.6 thou/uL (0.11-0.59); #Neutrophils 3.7 thou/uL (1.40-6.50); %Basophils 0.8 % (0.0-1.0); %Eosinophils 8.7 % (0.0-10.0); %Lymphocytes 32.3 % (21.0-51.0); %Monocytes 7.5 % (0.0-10.0); %Neutrophils 50.7 % (42.0-75.0); Hemoglobin 14.8 g/dL (12.0-16.0); Mean Corpuscular HGB CONC 32.5 g/dL (32.0-36.0); Mean Corpuscular Hemoglobin 30.5 pg (27.0-31.0); Mean Corpuscular Volume 93.8 fL (78.0-98.0); Platelet Count 216 thou/uL (130-400); Red Blood Cell (RBC) Count 4.85 mill/uL (4.20-5.40); White Blood Cell (WBC) Count 7.3 thou/uL (4.8-10.8)
[2021-10-01 05:36] LABS: Anion Gap 14 mmol/L (10-20); BUN (Urea Nitrogen) 22 mg/dL (9.8-20.1); Calc. Creatinine Clearance 52 mL/min (70-130); Carbon Dioxide 24 mmol/L (23-31); Cardiac Risk 3.5 (Less than 4.5); Chloride 104 mmol/L (98-107); Cholesterol 190 mg/dl (< 200 Desired); Glucose 103 mg/dL (83-110); HDL Cholesterol 54 mg/dL (>60 Neg Risk); LDL Cholesterol, Calculated 105 mg/dL; Sodium 138 mmol/L (136-145); Triglycerides 153 mg/dL (Less than 150)
[2021-10-01 05:42] LABS: Hemoglobin A1c 5.9 % (4.0-6.0)
[2021-10-01 06:11] LABS: Bacteria/HPF None Seen HPF (None Seen); Bilirubin Negative (Negative); Blood, Urine Negative (Negative); Clarity Clear (Clear); Glucose, Urine (Dipstick) Normal (Negative); Ketone, Urine Negative (Negative); Leukocyte Negative Leu/uL (Negative); Nitrite Negative (Negative); Protein, Urine (Dipstick) Negative (Neg-Trace); Squamous Epithelial 0-3 HPF (0-3); Urobilinogen Normal mg/dL (Less than 2); WBC/HPF 0-3 HPF (0-3); pH, Urine 6.5 (5.0-9.0)
[2021-10-01 06:15] LABS: Urine Culture Reflex No No
[2021-10-01] MEDS: FLUoxetine HCl 20 MG CAP PO SCH (09:19)
[2021-10-01] MEDS: Propafenone HCl 150 MG TAB PO SCH ×2 (10:42→20:01)
[2021-10-01] MEDS ORDERED: Rivaroxaban 15 MG TAB PO SCH (17:00)
[2021-10-01] MEDS ORDERED: Rivaroxaban 10 MG TAB PO SCH (17:00)
[2021-10-01] MEDS: Atorvastatin Calcium 20 MG TAB PO SCH (20:01)
[2021-10-01] MEDS: Zolpidem Tartrate 5 MG TAB PO SCH (20:01)
[2021-10-02] MEDS: HYDROcodone/Acetaminophen 5/325 mg Tablet PO PRN (04:47)
[2021-10-02] MEDS: Levothyroxine Sodium 125 MCG TAB PO SCH (05:29)
[2021-10-02] MEDS: FLUoxetine HCl 20 MG CAP PO SCH (08:27)
[2021-10-02] MEDS: Propafenone HCl 150 MG TAB PO SCH (08:27)
[2021-10-02] MEDS ORDERED: Amlodipine 10 MG TAB PO SCH (12:30)
[2021-10-02 15:39] VITALS: TEMP 98.7
[2021-10-02 15:48] VITALS: BP 148/95
[2021-10-02] MEDS ORDERED: cloNIDine 0.1 MG TAB PO PRN (21:00)
[2021-10-03] MEDS ORDERED: Amlodipine 10 MG TAB PO SCH (09:00)
== END 2021-10-02 18:15 | disposition home or self-care (01) | DRG 552 ==
LOC: ERS 11:02 → NEURO 18:02 → OBSVTOIN 10-02 15:07
PROVIDERS: ADMIT Specialist; ATTEND Specialist
DX: S32.10XA Unspecified fracture of sacrum, initial encounter for closed fracture (principal); S00.31XA Abrasion of nose, initial encounter; S79.811A Other specified injuries of right hip, initial encounter; G25.81 Restless legs syndrome; I48.91 Unspecified atrial fibrillation; E78.5 Hyperlipidemia, unspecified; E03.9 Hypothyroidism, unspecified; K21.9 Gastro-esophageal reflux disease without esophagitis; E11.9 Type 2 diabetes mellitus without complications; W19.XXXA Unspecified fall, initial encounter; R00.1 Bradycardia, unspecified; T50.995A Adverse effect of other drugs, medicaments and biological substances, initial encounter; I10 Essential (primary) hypertension; E78.00 Pure hypercholesterolemia, unspecified; Z20.822 Contact with and (suspected) exposure to COVID-19; Z98.890 Other specified postprocedural states; Y92.009 Unspecified place in unspecified non-institutional (private) residence as the place of occurrence of the external cause; Z88.8 Allergy status to other drugs, medicaments and biological substances
CPT/HCPCS: 36415; 70450; 71045; 72125; 72192; 80048; 80053; 80061; 81001; 83036; 83735; 84443; 84484; 85025; 85610; 85730; 93005; 96374; G0378; J3010; U0003; U0005

== ENCOUNTER 2022-12-26 23:11 | Inpatient (IN) | payer MEDICARE, OTHER, SELFPAY ==
[2022-12-26 23:53] LABS: INR-International Normal Ratio 1.9; PTT 36.7 sec (22.9-36.1); Prothrombin Time 22.2 sec (12.0-14.7)
[2022-12-26 23:58] LABS: ALT (SGPT) 17 U/L (8-55); AST (SGOT) 28 U/L (5-34); Albumin 3.8 g/dL (3.4-4.8); Alkaline Phosphatase 113 U/L (40-110); Anion Gap 15 mmol/L (10-20); BUN (Urea Nitrogen) 26 mg/dL (9.8-20.1); Bilirubin, Total 0.3 mg/dL (0.2-1.2); Calc. Creatinine Clearance 0 mL/min (70-130); Carbon Dioxide 23 mmol/L (23-31); Chloride 108 mmol/L (98-107); Estimated GFR 30; Globulin 2.8 g/dL (2.4-3.5); Glucose 113 mg/dL (83-110); Potassium 5.1 mmol/L (3.5-5.1); Protein, Total 6.6 g/dL (5.8-8.1); Sodium 141 mmol/L (136-145)
[2022-12-27 01:03] LABS: #Eosinphils 0.4 thou/uL (0.0-0.7); #Monocytes 0.4 thou/uL (0.11-0.59); #Neutrophils 4.8 thou/uL (1.40-6.50); %Basophils 0.4 % (0.0-1.0); %Eosinophils 5.4 % (0.0-10.0); %Lymphocytes 21.2 % (21.0-51.0); %Monocytes 5.8 % (0.0-10.0); %Neutrophils 66.9 % (42.0-75.0); Hemoglobin 7.9 g/dL (12.0-16.0); Mean Corpuscular HGB CONC 30.2 g/dL (32.0-36.0); Mean Corpuscular Hemoglobin 27.7 pg (27.0-31.0); Mean Corpuscular Volume 91.9 fl (78.0-98.0); Mean Platelet Volume 11.1 fL (7.4-10.4); Platelet Count 213 10x3/uL (130-400); Red Blood Cell (RBC) Count 2.85 mill/uL (4.20-5.40); White Blood Cell (WBC) Count 7.2 10x3/uL (4.8-10.8)
[2022-12-27] MEDS ORDERED: Acetaminophen 325 MG TAB PO PRN (01:45)
[2022-12-27] MEDS ORDERED: Ondansetron PF 4 MG/2 ML Vial IVP PRN (01:45)
[2022-12-27 03:00] VITALS: BMI 23.3
[2022-12-27] MEDS: Sodium Chloride 0.9% 1,000 ML IV SCH ×2 (03:01→17:20)
[2022-12-27 03:10] LABS: Hemoglobin A1c 5.4 % (4.0-6.0)
[2022-12-27 03:21] LABS: Cardiac Risk 1.9 (Less than 4.5)
[2022-12-27 03:27] LABS: Iron 27 ug/dL (50-170); Iron Binding Capacity, Total 365 mcg/dL (265-497)
[2022-12-27 03:47] LABS: Ferritin 7.19 ng/mL (10-291)
[2022-12-27 03:49] LABS: Troponin I Less than 0.010 ng/mL (< 0.028)
[2022-12-27] MEDS ORDERED: Levothyroxine Sodium 75 MCG TAB PO SCH ×2 (06:00→07:51)
[2022-12-27 06:58] LABS: Troponin I 0.014 ng/mL (< 0.028)
[2022-12-27 08:31] LABS: #Eosinphils 0.5 thou/uL (0.0-0.7); #Monocytes 0.5 thou/uL (0.11-0.59); #Neutrophils 2.4 thou/uL (1.40-6.50); %Basophils 0.5 % (0.0-1.0); %Eosinophils 9.7 % (0.0-10.0); %Lymphocytes 38.1 % (21.0-51.0); %Monocytes 8.6 % (0.0-10.0); %Neutrophils 42.9 % (42.0-75.0); Hemoglobin 7.5 g/dL (12.0-16.0); Mean Corpuscular HGB CONC 32.5 g/dL (32.0-36.0); Mean Corpuscular Hemoglobin 28.4 pg (27.0-31.0); Mean Platelet Volume 11.8 fL (7.4-10.4); Platelet Count 199 10x3/uL (130-400); RBC Distribution Width 14.1 % (11.5-14.5); Red Blood Cell (RBC) Count 2.64 mill/uL (4.20-5.40); White Blood Cell (WBC) Count 5.6 10x3/uL (4.8-10.8)
[2022-12-27 08:35] LABS: Mean Corpuscular Volume 87.5 fl (78.0-98.0)
[2022-12-27 08:51] LABS: Anion Gap 12 mmol/L (10-20); BUN (Urea Nitrogen) 25 mg/dL (9.8-20.1); Calc. Creatinine Clearance 30 mL/min (70-130); Calcium 8.4 mg/dL (7.8-10.44); Carbon Dioxide 23 mmol/L (23-31); Chloride 110 mmol/L (98-107); Estimated GFR 39; Glucose 78 mg/dL (83-110); Potassium 4.5 mmol/L (3.5-5.1); Sodium 140 mmol/L (136-145)
[2022-12-27] MEDS: Propafenone HCl 150 MG TAB PO SCH ×2 (08:56→20:32)
[2022-12-27] MEDS: hydrOXYzine 10 MG TAB PO SCH ×4 (08:57→20:31)
[2022-12-27] MEDS: rOPINIRole HCl 1 MG TAB PO SCH ×3 (08:57→20:32)
[2022-12-27] MEDS: Ferrous Sulfate 325 MG TAB PO SCH ×2 (08:57→17:06)
[2022-12-27] MEDS ORDERED: Heparin 10,000 UNITS/ 10 ML VIAL ONE (09:03)
[2022-12-27] MEDS: Famotidine 20 MG TAB PO SCH (12:20)
[2022-12-27] MEDS: Senokot S 8.6-50 MG TAB PO PRN (17:12)
[2022-12-27] MEDS: Atorvastatin Calcium 20 MG TAB PO SCH (20:31)
[2022-12-28 05:09] LABS: #Eosinphils 0.6 thou/uL (0.0-0.7); #Monocytes 0.5 thou/uL (0.11-0.59); #Neutrophils 3.8 thou/uL (1.40-6.50); %Basophils 0.4 % (0.0-1.0); %Eosinophils 9.1 % (0.0-10.0); %Lymphocytes 28.1 % (21.0-51.0); %Monocytes 7.6 % (0.0-10.0); %Neutrophils 54.7 % (42.0-75.0); Hemoglobin 7.3 g/dL (12.0-16.0); Mean Corpuscular HGB CONC 31.6 g/dL (32.0-36.0); Mean Corpuscular Hemoglobin 28.4 pg (27.0-31.0); Mean Corpuscular Volume 89.9 fl (78.0-98.0); Mean Platelet Volume 11.6 fL (7.4-10.4); Platelet Count 198 10x3/uL (130-400); Red Blood Cell (RBC) Count 2.57 mill/uL (4.20-5.40)
[2022-12-28] MEDS: Sodium Chloride 0.9% 1,000 ML IV SCH ×3 (05:28→17:01)
[2022-12-28 05:29] LABS: Anion Gap 10 mmol/L (10-20); BUN (Urea Nitrogen) 21 mg/dL (9.8-20.1); Calc. Creatinine Clearance 30 mL/min (70-130); Calcium 8.2 mg/dL (7.8-10.44); Carbon Dioxide 22 mmol/L (23-31); Chloride 110 mmol/L (98-107); Estimated GFR 40; Glucose 90 mg/dL (83-110); Potassium 4.1 mmol/L (3.5-5.1); Sodium 138 mmol/L (136-145)
[2022-12-28] MEDS: Levothyroxine Sodium 100 MCG TAB PO SCH (05:29)
[2022-12-28] MEDS ORDERED: cloNIDine 0.1 MG TAB PO PRN (06:50)
[2022-12-28] MEDS: Famotidine 20 MG TAB PO SCH (08:36)
[2022-12-28] MEDS: rOPINIRole HCl 1 MG TAB PO SCH ×3 (08:38→20:04)
[2022-12-28] MEDS: Propafenone HCl 150 MG TAB PO SCH ×2 (08:38→20:04)
[2022-12-28] MEDS: hydrOXYzine 10 MG TAB PO SCH ×4 (08:38→20:05)
[2022-12-28] MEDS: Ferrous Sulfate 325 MG TAB PO SCH (08:38)
[2022-12-28] MEDS: Lisinopril 20 MG TAB PO SCH ×2 (08:39→20:05)
[2022-12-28] MEDS: Mupirocin 2% Ointment 22 GM Tube TOP SCH ×3 (09:12→20:05)
[2022-12-28] MEDS ORDERED: GoLYTELY 4,000 ml Bottle PO SCH ×2 (11:30→12:00)
[2022-12-28] MEDS ORDERED: Pantoprazole 40 MG VIAL IVP SCH (11:45)
[2022-12-28] MEDS: Atorvastatin Calcium 20 MG TAB PO SCH (20:04)
[2022-12-28] MEDS: Terazosin HCl 5 MG CAP PO SCH (20:05)
[2022-12-29] MEDS: Sodium Chloride 0.9% 1,000 ML IV SCH ×2 (04:05→14:47)
[2022-12-29] MEDS: Senokot S 8.6-50 MG TAB PO PRN (05:00)
[2022-12-29] MEDS: Levothyroxine Sodium 100 MCG TAB PO SCH (05:00)
[2022-12-29 05:23] LABS: #Eosinphils 0.5 thou/uL (0.0-0.7); #Monocytes 0.4 thou/uL (0.11-0.59); #Neutrophils 2.6 thou/uL (1.40-6.50); %Basophils 0.4 % (0.0-1.0); %Eosinophils 9.5 % (0.0-10.0); %Lymphocytes 34.5 % (21.0-51.0); %Neutrophils 47.2 % (42.0-75.0); Hemoglobin 6.7 g/dL (12.0-16.0); Mean Corpuscular HGB CONC 31.8 g/dL (32.0-36.0); Mean Corpuscular Volume 88.3 fl (78.0-98.0); Platelet Count 179 10x3/uL (130-400); RBC Distribution Width 13.9 % (11.5-14.5); Red Blood Cell (RBC) Count 2.39 mill/uL (4.20-5.40); White Blood Cell (WBC) Count 5.5 10x3/uL (4.8-10.8)
[2022-12-29 05:49] LABS: Anion Gap 10 mmol/L (10-20); BUN (Urea Nitrogen) 15 mg/dL (9.8-20.1); Calc. Creatinine Clearance 35 mL/min (70-130); Calcium 7.7 mg/dL (7.8-10.44); Carbon Dioxide 22 mmol/L (23-31); Chloride 111 mmol/L (98-107); Estimated GFR 47; Glucose 84 mg/dL (83-110); Potassium 3.9 mmol/L (3.5-5.1); Sodium 139 mmol/L (136-145)
[2022-12-29] MEDS ORDERED: cloNIDine 0.1 MG TAB PO PRN (06:19)
[2022-12-29] MEDS: rOPINIRole HCl 1 MG TAB PO SCH ×3 (08:08→20:49)
[2022-12-29] MEDS: Propafenone HCl 150 MG TAB PO SCH ×2 (08:08→20:49)
[2022-12-29] MEDS: hydrOXYzine 10 MG TAB PO SCH ×4 (08:09→20:49)
[2022-12-29] MEDS: Lisinopril 20 MG TAB PO SCH ×2 (08:09→20:49)
[2022-12-29] MEDS: Mupirocin 2% Ointment 22 GM Tube TOP SCH ×3 (08:09→20:49)
[2022-12-29] MEDS: Pantoprazole 40 MG VIAL IVP SCH (08:09)
[2022-12-29] MEDS: Amlodipine 10 MG TAB PO SCH (08:33)
[2022-12-29] MEDS ORDERED: Lidocaine 1% PF 5 ML VIAL ONE (10:24)
[2022-12-29] MEDS ORDERED: ePHEDrine Sulfate 50 MG/10 ML VIAL ONE (10:24)
[2022-12-29] MEDS ORDERED: PROPOFOL 200 MG/20 ML VIAL ONE (10:24)
[2022-12-29] MEDS ORDERED: PHENYLEPHRINE-NS 100 MCG/ML 10 ML SYRINGE ONE (10:24)
[2022-12-29] MEDS ORDERED: Albumin 5% 500 ML ONE (11:21)
[2022-12-29 12:37] LABS: Hemoglobin 7.8 g/dL (12.0-16.0)
[2022-12-29] MEDS: Terazosin HCl 5 MG CAP PO SCH (20:49)
[2022-12-29] MEDS: Atorvastatin Calcium 20 MG TAB PO SCH (20:49)
[2022-12-30] MEDS: Sodium Chloride 0.9% 1,000 ML IV SCH ×2 (00:43→10:00)
[2022-12-30 04:26] LABS: #Eosinphils 0.5 thou/uL (0.0-0.7); #Monocytes 0.5 thou/uL (0.11-0.59); #Neutrophils 4.2 thou/uL (1.40-6.50); %Basophils 0.4 % (0.0-1.0); %Eosinophils 6.8 % (0.0-10.0); %Lymphocytes 25.8 % (21.0-51.0); %Monocytes 7.5 % (0.0-10.0); %Neutrophils 59.4 % (42.0-75.0); Hemoglobin 8.5 g/dL (12.0-16.0); Mean Corpuscular Hemoglobin 27.5 pg (27.0-31.0); Mean Corpuscular Volume 86.1 fl (78.0-98.0); Mean Platelet Volume 12.2 fL (7.4-10.4); Platelet Count 186 10x3/uL (130-400); RBC Distribution Width 15.3 % (11.5-14.5); Red Blood Cell (RBC) Count 3.09 mill/uL (4.20-5.40); White Blood Cell (WBC) Count 7.1 10x3/uL (4.8-10.8)
[2022-12-30 05:18] LABS: Anion Gap 10 mmol/L (10-20); BUN (Urea Nitrogen) 12 mg/dL (9.8-20.1); Calc. Creatinine Clearance 35 mL/min (70-130); Calcium 8.4 mg/dL (7.8-10.44); Carbon Dioxide 24 mmol/L (23-31); Chloride 109 mmol/L (98-107); Estimated GFR 48; Glucose 85 mg/dL (83-110); Potassium 4.1 mmol/L (3.5-5.1); Sodium 139 mmol/L (136-145)
[2022-12-30] MEDS: Levothyroxine Sodium 100 MCG TAB PO SCH (05:24)
[2022-12-30 09:49] VITALS: BP 127/60; TEMP 97.2
[2022-12-30] MEDS: Amlodipine 10 MG TAB PO SCH (09:51)
[2022-12-30] MEDS: rOPINIRole HCl 1 MG TAB PO SCH (09:52)
[2022-12-30] MEDS: hydrOXYzine 10 MG TAB PO SCH (09:52)
[2022-12-30] MEDS: Lisinopril 20 MG TAB PO SCH (09:52)
[2022-12-30] MEDS: Mupirocin 2% Ointment 22 GM Tube TOP SCH (09:53)
[2022-12-30] MEDS: Pantoprazole 40 MG VIAL IVP SCH (09:54)
[2022-12-30] MEDS: Propafenone HCl 150 MG TAB PO SCH (09:58)
== END 2022-12-30 11:11 | disposition home or self-care (01) | DRG 812 ==
LOC: ERS 23:11 → 2NO 12-27 02:07
PROVIDERS: ADMIT Specialist; ATTEND Specialist
PROC: 0DJ08ZZ Inspection of Upper Intestinal Tract, Via Natural or Artificial Opening Endoscopic (ICD-10-PCS; principal; 2022-12-29)
PROC: 0DBK8ZZ Excision of Ascending Colon, Via Natural or Artificial Opening Endoscopic (ICD-10-PCS; 2022-12-29)
PROC: 0DBP8ZZ Excision of Rectum, Via Natural or Artificial Opening Endoscopic (ICD-10-PCS; 2022-12-29)
PROC: 0W3P8ZZ Control Bleeding in Gastrointestinal Tract, Via Natural or Artificial Opening Endoscopic (ICD-10-PCS; 2022-12-29)
PROC: 30233N1 Transfusion of Nonautologous Red Blood Cells into Peripheral Vein, Percutaneous Approach (ICD-10-PCS; 2022-12-29)
DX: D50.9 Iron deficiency anemia, unspecified (principal); I25.110 Atherosclerotic heart disease of native coronary artery with unstable angina pectoris; I10 Essential (primary) hypertension; E03.9 Hypothyroidism, unspecified; E78.00 Pure hypercholesterolemia, unspecified; G25.81 Restless legs syndrome; F32.A Depression, unspecified; F17.210 Nicotine dependence, cigarettes, uncomplicated; K21.9 Gastro-esophageal reflux disease without esophagitis; E11.9 Type 2 diabetes mellitus without complications; I48.0 Paroxysmal atrial fibrillation; I95.9 Hypotension, unspecified; K63.5 Polyp of colon; K57.30 Diverticulosis of large intestine without perforation or abscess without bleeding; K64.8 Other hemorrhoids; Z98.890 Other specified postprocedural states; Z88.8 Allergy status to other drugs, medicaments and biological substances; Z91.148 Patient's other noncompliance with medication regimen for other reason; Z95.1 Presence of aortocoronary bypass graft; Z79.01 Long term (current) use of anticoagulants
CPT/HCPCS: 36415; 36416; 36430; 71045; 78452; 80048; 80053; 80061; 82607; 82728; 83036; 83540; 83550; 83880; 84443; 84484; 85025; 85610; 85730; 86850; 86900; 86901; 88305; 93005; 93017; 93306; A9500; C9113; J1644; J1650; J2704; J7050; P9016; P9045